=== PATIENT | female | born 1940 | race Caucasian/White ===

== ENCOUNTER 2018-05-16 09:51 | Emergency (ER) | payer MEDICARE ==
--- NOTE | 2018-05-16 10:36 | ED ---
Complex/Multi-Sys Presentation - HPI Summary HPI Summary: This is scribe Ed Prema documenting for attending Seth Looney MD. 78 y/o female presents to the ED c/o dizziness starting this morning at around 07:30. Associated sx: N/V (yellowish-bile). Pt states she "doesn't remember much about this morning". DIzziness alleviated by lying supine on the floor. BP measured at home noted high by son. I, Dr. Looney, personally performed the services described in this documentation as scribed in my presence and it is both accurate and complete. - History Of Current Complaint Chief Complaint: EDNauseaVomitDiarrh Time Seen by Provider: 05/16/18 10:17 Hx Obtained From: Patient - Allergies/Home Medications Allergies/Adverse Reactions: Allergies Allergy/AdvReac Type Severity Reaction Status Date / Time No Known Allergies Allergy Verified 04/27/16 11:37 PMH/Surg Hx/FS Hx/Imm Hx Previously Healthy: No Endocrine/Hematology History: Denies: Hx Diabetes, Hx Thyroid Disease Cardiovascular History: Reports: Hx Angina, Hx Hypertension, Other Cardiovascular Problems/Disorders - HX OF PRESSURE IN CHEST AT TIMES- NONE RECENTLY Respiratory History: Reports: Other Respiratory Problems/Disorders - IN THE PAST -SOME TROUBLE BREATHING- STATES NONE RECENTLY Denies: Hx Asthma, Hx Chronic Obstructive Pulmonary Disease (COPD) Musculoskeletal History: Reports: Other Musculoskeletal History - 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 Sensory History: Reports: Hx Cataracts - BILATERAL, Hx Contacts or Glasses - GLASSES Denies: Hx Hearing Aid Opthamlomology History: Reports: Hx Cataracts - BILATERAL, Hx Contacts or Glasses - GLASSES Psychiatric History: Reports: Hx Anxiety, Hx Depression - Surgical History Surgery Procedure, Year, and Place: TONSILLECTOMY A CHILD Hx Anesthesia Reactions: No Infectious Disease History: No Infectious Disease History: Denies: Traveled Outside the [place] in Last 30 Days - Family History Known Family History: Positive: Unknown - Social History Alcohol Use: Occasionally Alcohol Amount: 2 BEERS WEEKLY Substance Use Type: Reports: None Smoking Status (MU): Former Smoker Amount Used/How Often: 2 PPD X 30 YEARS Have You Smoked in the Last Year: No Review of Systems Constitutional: Negative Eyes: Negative ENT: Negative Cardiovascular: Negative Respiratory: Negative Gastrointestinal: Negative Genitourinary: Negative Musculoskeletal: Negative Skin: Negative Neurological: Negative Psychological: Normal All Other Systems Reviewed And Are Negative: Yes Physical Exam - Summary Physical Exam Summary: VITAL SIGNS: Reviewed. GENERAL: Patient is a well-developed and nourished female who is lying comfortable in the stretcher. Patient is not in any acute respiratory distress. HEAD AND FACE: No signs of trauma. No ecchymosis, hematomas or skull depressions. No sinus tenderness. EYES: PERRLA, EOMI x 2, No injected conjunctiva, no nystagmus. EARS: Hearing grossly intact. Ear canals and tympanic membranes are within normal limits. MOUTH: Oropharynx within normal limits. NECK: Supple, trachea is midline, no adenopathy, no JVD, no carotid bruit, no c- spine tenderness, neck with full ROM. CHEST: Symmetric, no tenderness at palpation LUNGS: Clear to auscultation bilaterally. No wheezing or crackles. CVS: Regular rate and rhythm, S1 and S2 present, no murmurs or gallops appreciated. ABDOMEN: Soft, non-tender. No signs of distention. No rebound no guarding, and no masses palpated. Bowel sounds are normal. EXTREMITIES: FROM in all major joints, no edema, no cyanosis or clubbing. NEURO: Alert and oriented x 3. No acute neurological deficits. Speech is normal and follows commands. SKIN: Dry and warm Triage Information Reviewed: Yes Vital Signs On Initial Exam: Initial Vitals Temp Pulse Resp BP Pulse Ox 97.9 F 61 18 154/81 98 05/16/18 09:52 05/16/18 09:52 05/16/18 09:52 05/16/18 09:52 05/16/18 09:52 Vital Signs Reviewed: Yes Diagnostics - Vital Signs Vital Signs Temp Pulse Resp BP Pulse Ox 05/16/18 09:52 97.9 F 61 18 154/81 98 - Laboratory Lab Statement: Any lab studies that have been ordered have been reviewed, and results considered in the medical decision making process. Discharge - Discharge Plan Referrals: No Primary Care Phys,NOPCP [Primary Care Provider] -
--- NOTE | 2018-05-16 10:37 | ED ---
Dizziness - HPI Summary HPI Summary: This is scribe Ed Prema documenting for attending Seth Looney MD. 78 y/o female presents to the ED c/o dizziness starting this morning at around 07:30. Pt unsure if she is dizzy now. Associated sx: N/V (yellowish-bile). Pt states she "doesn't remember much about this morning". Per son, pt's memory was worse than baseline earlier today. Dizziness alleviated by lying supine on the floor. BP measured at home noted high by son (180s/60s). I, Dr. Looney, personally performed the services described in this documentation as scribed in my presence and it is both accurate and complete. - History Of Current Complaint Chief Complaint: EDNauseaVomitDiarrh Stated Complaint: VOMITING/DIZZINESS/HIGH BP Time Seen by Provider: 05/16/18 10:17 Hx Obtained From: Patient Timing: Constant Severity Initially: Severe Character: Dizzy Aggravating Factor(s): Nothing Alleviating Factor(s): Lying Down Associated Signs And Symptoms: Positive: Nausea, Vomiting - Allergies/Home Medications Allergies/Adverse Reactions: Allergies Allergy/AdvReac Type Severity Reaction Status Date / Time No Known Allergies Allergy Verified 04/27/16 11:37 Home Medications: Home Medications Aspirin EC TAB* [Ecotrin EC Low Dose 81 MG*] 81 mg PO DAILY 05/16/18 [History Confirmed 05/16/18] Multivitamins/Minerals TAB* [Theragran/minerals TAB*] 1 tab PO DAILY 05/16/18 [ History Confirmed 05/16/18] PMH/Surg Hx/FS Hx/Imm Hx Previously Healthy: No Endocrine/Hematology History: Denies: Hx Diabetes, Hx Thyroid Disease Cardiovascular History: Reports: Hx Angina, Hx Hypertension, Other Cardiovascular Problems/Disorders - HX OF PRESSURE IN CHEST AT TIMES- NONE RECENTLY Respiratory History: Reports: Other Respiratory Problems/Disorders - IN THE PAST -SOME TROUBLE BREATHING- STATES NONE RECENTLY Denies: Hx Asthma, Hx Chronic Obstructive Pulmonary Disease (COPD) Musculoskeletal History: Reports: Other Musculoskeletal History - 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 Sensory History: Reports: Hx Cataracts - BILATERAL, Hx Contacts or Glasses - GLASSES Opthamlomology History: Reports: Hx Cataracts - BILATERAL, Hx Contacts or Glasses - GLASSES Psychiatric History: Reports: Hx Anxiety, Hx Depression - Surgical History Surgery Procedure, Year, and Place: TONSILLECTOMY A CHILD Hx Anesthesia Reactions: No Infectious Disease History: No Infectious Disease History: Denies: Traveled Outside the [place] in Last 30 Days - Family History Known Family History: Positive: Unknown - Social History Alcohol Use: Occasionally Alcohol Amount: 2 BEERS WEEKLY Substance Use Type: Reports: None Smoking Status (MU): Former Smoker Amount Used/How Often: 2 PPD X 30 YEARS Have You Smoked in the Last Year: No Review of Systems Constitutional: Negative Eyes: Negative ENT: Negative Cardiovascular: Negative Respiratory: Negative Positive: Vomiting, Nausea Genitourinary: Negative Musculoskeletal: Negative Skin: Negative Neurological: Other - dizziness Psychological: Normal All Other Systems Reviewed And Are Negative: Yes Physical Exam - Summary Physical Exam Summary: VITAL SIGNS: Reviewed. GENERAL: Patient is a well-developed and nourished female who is lying comfortable in the stretcher. Patient is not in any acute respiratory distress. HEAD AND FACE: No signs of trauma. No ecchymosis, hematomas or skull depressions. No sinus tenderness. EYES: PERRLA, EOMI x 2, No injected conjunctiva. The patient has no nystagmus. EARS: Hearing grossly intact. Ear canals and tympanic membranes are within normal limits. MOUTH: Oropharynx within normal limits. NECK: Supple, trachea is midline, no adenopathy, no JVD, no carotid bruit, no c- spine tenderness, neck with full ROM. CHEST: Symmetric, no tenderness at palpation LUNGS: Clear to auscultation bilaterally. No wheezing or crackles. CVS: Regular rate and rhythm, S1 and S2 present, no murmurs or gallops appreciated. ABDOMEN: Soft, non-tender. No signs of distention. No rebound no guarding, and no masses palpated. Bowel sounds are normal. EXTREMITIES: FROM in all major joints, no edema, no cyanosis or clubbing. NEURO: Alert and oriented x 3. No acute neurological deficits. Speech is normal and follows commands. SKIN: Dry and warm Triage Information Reviewed: Yes Vital Signs On Initial Exam: Initial Vitals Temp Pulse Resp BP Pulse Ox 97.9 F 61 18 154/81 98 05/16/18 09:52 05/16/18 09:52 05/16/18 09:52 05/16/18 09:52 05/16/18 09:52 Vital Signs Reviewed: Yes Diagnostics - Vital Signs Vital Signs Temp Pulse Resp BP Pulse Ox 05/16/18 09:52 97.9 F 61 18 154/81 98 - Laboratory Result Diagrams: 05/16/18 11:33 05/16/18 11:33 Lab Statement: Any lab studies that have been ordered have been reviewed, and results considered in the medical decision making process. - Radiology CXR Xray Interpretation: No Acute Changes - No evidence for active cardiopulmonary disease Radiology Interpretation Completed By: Radiologist - CT BRAIN CT CT Interpretation: No Acute Changes - #. No acute intracranial process evident. #. Mild involutional change and stigmata of probable chronic small vessel ischemic disease. CT Interpretation Completed By: Radiologist - EKG 1 EKG Interpretation: 10:56 - SR @ [address] elevations, normal axis. Re-Evaluation - Re-Evaluation 1 Re-Evaluation Time: 13:20 Dizzy Course/Dx - Course Assessment/Plan: Test results without any significant abnormalities. UA (-) UTI. Head CT and CXR no acute pathology. EKG shows no ST elevations. Given IV fluids and meclizine for dizziness and sx improved. At this point the pt is symptomatic, ambulating without dizziness, and was d/c home with f/u with PCP. Rx given for Meclizine. - Diagnoses Provider Diagnoses: Vertigo Discharge - Sign-Out/Discharge Documenting (check all that apply): Patient Departure - Discharge Plan Condition: Stable Disposition: HOME Prescriptions: Meclizine TAB* [Antivert 12.5 TAB*] 25 mg PO TID PRN #30 tab PRN Reason: Vertigo Patient Education Materials: Vertigo (ED) Referrals: [facility] [place] [facility]ERRAL [Outside] - 4 Days (PLEASE F/u IN 3-5 DAYS) Additional Instructions: RETURN TO THE ED FOR CHANGING/WORSENING SYMPTOMS - Billing Disposition and Condition Condition: STABLE Disposition: Home
[2018-05-16] MEDS ORDERED: NS 0.9% 1000 ML* 1,000 ML IV ONE (10:48)
[2018-05-16] MEDS ORDERED: Ondansetron INJ* 2 MG/ML VIAL IV ONE (10:48)
[2018-05-16] MEDS ORDERED: Meclizine TAB* 12.5 MG PO ONE (10:48)
--- NOTE | 2018-05-16 11:24 | RAD ---
Indication: Vomiting, dizziness, high blood pressure. Comparison: April 27, 2016 Technique: Noncontrast CT vertex of skull through foramen magnum. Report: The sulci, ventricles, and basal cisterns are normal for age with mild involutional change. Ayala matter white matter differentiation is preserved without evidence for edema. No intra or extra axial hemorrhage, mass, or fluid collection detected. 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 Unremarkable visualized orbital contents. Unremarkable calvarium and skull base. Unremarkable scalp. The visualized paranasal sinuses and mastoid air spaces are clear. IMPRESSION: #. No acute intracranial process evident. #. Mild involutional change and stigmata of probable chronic small vessel ischemic disease.
--- NOTE | 2018-05-16 11:28 | RAD ---
INDICATION: Dizziness. COMPARISON: Comparison is made with April 27, 2016. TECHNIQUE: AP and lateral views of the chest were obtained. FINDINGS: The heart is within normal limits in size. Mediastinal and hilar contours appear within normal limits. The lungs are clear. No pleural effusion is present. IMPRESSION: NO EVIDENCE FOR ACTIVE CARDIOPULMONARY DISEASE.
[2018-05-16 11:48] LABS: ABS Basophils 0.1 10^3/ul (0-0.2); ABS Eosinophils 0 10^3/ul (0-0.6); ABS Lymphocytes 0.5 10^3/ul (1.0-4.8); ABS Monocytes 0.4 10^3/ul (0-0.8); ABS Neutrophils 7.7 10^3/ul (1.5-7.7); ABS Nucleated RBC 0 10^3/ul; Eosinophil % 0.1 % (0-6); Hematocrit 42 % (35-47); Hemoglobin 14.1 g/dl (12.0-16.0); Lymphocyte % 6.2 % (25-47); Mean Corpuscular HGB Conc 34 g/dl (31-36); Mean Corpuscular Hemoglobin 29 pg (27-31); Mean Corpuscular Volume 84 fL (80-97); Mean Platelet Volume 10.3 um3 (7.4-10.4); Nucleated Red Blood Cells % 0; Platelet Count 196 10^3/ul (150-450); Red Blood Count 4.94 10^6/ul (4.00-5.40); Red Cell Distribution Width 14 % (10.5-15); White Blood Count 8.7 10^3/ul (3.5-10.8)
[2018-05-16 12:17] LABS: EGFR Non-African American 91.6 (>60)
[2018-05-16 14:37] LABS: Urine Appearance Clear; Urine Blood Negative (Negative); Urine Color Yellow; Urine Ketones 1+ (Negative); Urine Protein Negative (Negative); Urine Red Blood Cell 1+(3-5/hpf) (Absent); Urine Urobilinogen Negative (Negative); Urine White Blood Cell Trace(0-5/hpf) (Absent)
[2018-05-16 15:09] VITALS: BP 166/73
== END 2018-05-16 15:04 | disposition home or self-care (01) ==
LOC: ED 09:51
DX: R42 Dizziness and giddiness (principal); R11.2 Nausea with vomiting, unspecified; Z79.82 Long term (current) use of aspirin; Z87.891 Personal history of nicotine dependence
CPT/HCPCS: 36415; 70450; 71046; 80053; 80307; 80320; 81003; 81015; 82550; 83605; 83735; 83880; 84443; 84484; 85025; 86140; 87086; 93005; 96374; 99282; A9270-GY; G0480; J2405

== ENCOUNTER 2023-12-25 11:35 | Inpatient (IN) ==
[2023-12-25] MEDS: Pantoprazole VIAL 40 MG VIAL IV ONE (12:08)
[2023-12-25] MEDS: Ondansetron 4 mg VIAL 2 MG/ML 2 ml VIAL IV ONE (12:08)
[2023-12-25 12:54] LABS: ABS Lymphocytes 0.4 10^3/uL (1.0-4.8); ABS Monocytes 0.4 10^3/uL (0.0-0.9); ABS Neutrophils 9.5 10^3/uL (1.5-7.6); ABS Nucleated RBC 0.01 10^3/ul; Hematocrit 40.2 % (35-45); Hemoglobin 13.6 g/dL (11.5-14.3); Lymphocyte % 3.8 %; Mean Corpuscular Hemoglobin 28.4 pg (27-33); Mean Corpuscular Hgb Conc 33.8 g/dL (31-36); Mean Corpuscular Volume 84.1 fL (80-97); Mean Platelet Volume 10.9 fL (7.5-11.2); Nucleated Red Blood Cells % 0.1 %/100WBC (0.0-0.8); Platelet Count 288 10^3/uL (150-450); Red Blood Count 4.79 10^6/uL (3.63-4.92); Red Cell Distribution Width 14.6 % (12-17); White Blood Count 10.3 10^3/uL (3.8-11.8)
[2023-12-25 13:07] LABS: Activated Partial Thrombo Time 30.3 seconds (26.0-38.0); INR 1.08 (0.83-1.13)
[2023-12-25 13:19] LABS: High Sens Troponin Baseline 440 pg/mL (<15)
[2023-12-25 13:25] LABS: ALT 25 U/L (7-52); Albumin 5.3 g/dL (3.2-5.2); Albumin/Globulin Ratio 1.9 (1-3); Alkaline Phosphatase 69 U/L (35-149); Anion Gap 10 mmol/L (2-16); Blood Urea Nitrogen 21 mg/dL (6-24); C Reactive Protein 7.78 mg/L (<8.01); CO2 Carbon Dioxide 25 mmol/L (22-32); Chloride 97 mmol/L (101-111); Creatinine, Serum 0.72 mg/dL (0.51-0.95); Globulin 2.8 g/dL (2-4); Glucose 148 mg/dL (70-100); Sodium 132 mmol/L (135-145); Total Bilirubin 0.7 mg/dL (0.2-1.0); Total Protein 8.1 g/dL (6.4-8.9); eGFR CKD-EPI 83.4 (>60)
[2023-12-25] MEDS: Pantoprazole 80 mg in NS BAG 80 MG/250 ML BAG IV ONE (13:44)
[2023-12-25] MEDS ORDERED: Ondansetron 4 mg VIAL 2 MG/ML 2 ml VIAL IV PRN (16:17)
[2023-12-25] MEDS: Prochlorperazine 5 mg/ml 2 ml VIAL (10 mg) IV ONE (16:28)
[2023-12-25] MEDS: Iohexol 350 (CONTRAST) 500 ML MDV IV ONE (16:41)
[2023-12-25] MEDS: Lactated Ringers 1000 ml BAG 1,000 ML IV SCH (17:05)
[2023-12-25 20:58] LABS: Hematocrit 35.6 % (35-45)
[2023-12-25] MEDS: Pantoprazole VIAL 40 MG VIAL IV SCH (21:12)
[2023-12-26 00:09] LABS: Hematocrit 32.7 % (35-45); Hemoglobin 11.2 g/dL (11.5-14.3)
[2023-12-26 07:02] LABS: ABS Lymphocytes 0.9 10^3/uL (1.0-4.8); ABS Neutrophils 7.1 10^3/uL (1.5-7.6); Eosinophil % 0.3 %; Hematocrit 33.2 % (35-45); Hemoglobin 11.2 g/dL (11.5-14.3); Lymphocyte % 10.4 %; Mean Corpuscular Hemoglobin 28.5 pg (27-33); Mean Corpuscular Hgb Conc 33.8 g/dL (31-36); Mean Corpuscular Volume 84.4 fL (80-97); Platelet Count 230 10^3/uL (150-450); Red Blood Count 3.94 10^6/uL (3.63-4.92)
[2023-12-26 07:04] LABS: Calcium 8.8 mg/dL (8.6-10.3); Creatinine, Serum 0.7 mg/dL (0.51-0.95); Magnesium 1.7 mg/dL (1.9-2.7); Potassium 4.1 mmol/L (3.5-5.0); eGFR CKD-EPI 86.3 (>60)
[2023-12-26] MEDS ORDERED: fentaNYL 100 mcg/2 ml 50 MCG/ML VIAL ONE (15:19)
[2023-12-26] MEDS ORDERED: Midazolam 10 mg/10 ml VIAL 1 mg/ml 10 ml VIAL (10 mg) ONE (15:19)
[2023-12-26 22:44] LABS: Urine Appearance Clear; Urine Bilirubin Negative (Negative); Urine Blood Trace (Negative); Urine Color Yellow; Urine Glucose Trace (Negative); Urine Ketones Negative (Negative); Urine Nitrite Negative (Negative); Urine Protein 2+ (>=100 mg/dL) (Negative); Urine Specific Gravity 1.032 (1.002-1.030); Urine Urobilinogen Negative (Negative)
[2023-12-26 22:49] LABS: Urine Bacteria Absent /HPF (Absent); Urine Red Blood Cell 1+(3-5/hpf) /HPF (0-Trace); Urine Squamous Epithelial Cell Present /HPF (Absent); Urine White Blood Cell 3+(>20/hpf) /HPF (0-Trace)
[2023-12-27 06:29] LABS: Hematocrit 33.1 % (35-45); Hemoglobin 11.2 g/dL (11.5-14.3); Mean Corpuscular Hemoglobin 28.6 pg (27-33); Mean Corpuscular Hgb Conc 33.8 g/dL (31-36); Mean Corpuscular Volume 84.5 fL (80-97); Mean Platelet Volume 10.6 fL (7.5-11.2); Platelet Count 205 10^3/uL (150-450); Red Blood Count 3.92 10^6/uL (3.63-4.92); Red Cell Distribution Width 15.1 % (12-17); White Blood Count 5.8 10^3/uL (3.8-11.8)
[2023-12-27 06:46] LABS: Calcium 8.6 mg/dL (8.6-10.3); Creatinine, Serum 0.67 mg/dL (0.51-0.95); HDL Cholesterol 45.5 mg/dL; Magnesium 1.7 mg/dL (1.9-2.7); Potassium 3.8 mmol/L (3.5-5.0); eGFR CKD-EPI 87.2 (>60)
[2023-12-27] MEDS: Magnesium Sulfate 2 gm BAG 2 GM/50 ML BAG IVPB ONE (08:58)
[2023-12-27 13:21] LABS: High Sensitivity Troponin 1 Hr 88 pg/mL (<15)
[2023-12-27] MEDS ORDERED: Flumazenil 0.5 mg/5 ml 0.1 MG/ML 5 ml VIAL IV PRN (14:54)
[2023-12-27] MEDS ORDERED: Naloxone 0.4 mg VIAL 0.4 mg/ml 1 ml VIAL IV PUSH PRN (14:54)
[2023-12-27] MEDS: Lidocaine 2% JELLY 6 ML Topical TOPICAL ONE (15:52)
[2023-12-27] MEDS: Lactated Ringers 1000 ml BAG 1,000 ML IV ONE (15:52)
[2023-12-27] MEDS: fentaNYL 100 mcg/2 ml 50 MCG/ML VIAL IV SLOW PU ONE (15:52)
[2023-12-27] MEDS: Ondansetron 4 mg VIAL 2 MG/ML 2 ml VIAL IV ONE (15:53)
[2023-12-27] MEDS: Midazolam 10 mg/10 ml VIAL 1 mg/ml 10 ml VIAL (10 mg) IV SLOW PU ONE (15:53)
[2023-12-27 16:02] LABS: Total Bilirubin 0.5 mg/dL (0.2-1.0)
[2023-12-27] MEDS: Enoxaparin 40 MG/0.4 ML SYR SUBCUT SCH (16:51)
[2023-12-27] MEDS: Polyethylene Glycol 3350 17 GM PACKET PO SCH (20:49)
[2023-12-28 06:19] LABS: Hematocrit 34.7 % (35-45); Hemoglobin 11.7 g/dL (11.5-14.3); Mean Corpuscular Hemoglobin 28.3 pg (27-33); Mean Corpuscular Hgb Conc 33.8 g/dL (31-36); Mean Corpuscular Volume 83.6 fL (80-97); Mean Platelet Volume 10.4 fL (7.5-11.2); Platelet Count 228 10^3/uL (150-450); Red Blood Count 4.15 10^6/uL (3.63-4.92); Red Cell Distribution Width 15.2 % (12-17); White Blood Count 6.4 10^3/uL (3.8-11.8)
[2023-12-28 06:38] LABS: Albumin 3.7 g/dL (3.2-5.2); Albumin/Globulin Ratio 1.9 (1-3); Calcium 8.4 mg/dL (8.6-10.3); Creatinine, Serum 0.71 mg/dL (0.51-0.95); Globulin 1.9 g/dL (2-4); Magnesium 1.9 mg/dL (1.9-2.7); Potassium 3.8 mmol/L (3.5-5.0); Total Bilirubin 0.5 mg/dL (0.2-1.0); Total Protein 5.6 g/dL (6.4-8.9); eGFR CKD-EPI 84.8 (>60)
[2023-12-28] MEDS: Senna TAB 8.6 mg TAB PO PRN (10:28)
[2023-12-28] MEDS: Magnesium Sulfate IV 1GM/100ML 1 GM/100 ML BAG IV ONE (10:28)
[2023-12-28] MEDS: Potassium Chlor 20 meq TAB.ER PO ONE (10:28)
[2023-12-29 06:23] LABS: Hematocrit 35.2 % (35-45); Hemoglobin 11.9 g/dL (11.5-14.3); Mean Corpuscular Hgb Conc 33.7 g/dL (31-36); Mean Platelet Volume 10.4 fL (7.5-11.2); Platelet Count 241 10^3/uL (150-450); Red Blood Count 4.24 10^6/uL (3.63-4.92); Red Cell Distribution Width 15.2 % (12-17); White Blood Count 6.7 10^3/uL (3.8-11.8)
[2023-12-29 06:28] LABS: Calcium 8.8 mg/dL (8.6-10.3); Creatinine, Serum 0.67 mg/dL (0.51-0.95); eGFR CKD-EPI 87.2 (>60)
[2023-12-29] MEDS ORDERED: Aminophylline 25 MG/ML VIAL ONE (08:07)
[2023-12-29] MEDS ORDERED: Regadenoson 0.4 MG/5 ML SYRINGE ONE (08:07)
[2023-12-29 13:47] VITALS: BP 184/79
[2023-12-29 16:26] LABS: Hepatitis B Surface Antigen Nonreactive (Nonreactive)
[2023-12-29 16:36] LABS: HIV 4th Generation Nonreactive (Nonreactive)
[2023-12-29 16:43] LABS: Hepatitis B Surface Ab Not Immune (Immune); Hepatitis C Antibody Negative (Negative)
== END 2023-12-29 15:26 | disposition home or self-care (01) | DRG 377 ==
LOC: ED 11:35 → EDHOLD 11:35 → MEDTELE 15:21 → SUATTDRO 12-27 10:31
PROVIDERS: ADMIT Internal Medicine; ATTEND Student in an Organized Health Care Education/Training Program